=== PATIENT | female | born 1945 | race Caucasian/White ===

== ENCOUNTER 2016-04-29 04:52 | Emergency (ER) | payer MEDICARE, OTHER ==
[~2016-04-29] VITALS: Ht 160 cm; Wt 56.7 kg
[2016-04-29 04:52] VITALS: BP 127/30
[~2016-04-29 04:52] MED LIST: FLUO-120; LEVO75TA PO; LORA1TAB82 PO; TRAZ-144 PO
== END 2016-04-29 05:48 | disposition home or self-care (01) ==
LOC: ER 04:55
DX: Z00.8 Encounter for other general examination (principal); F32.9 Major depressive disorder, single episode, unspecified; Z88.0 Allergy status to penicillin; Z85.3 Personal history of malignant neoplasm of breast
CPT/HCPCS: 99281; A4606; Z7502; Z7610

== ENCOUNTER 2018-06-23 18:38 | Emergency (ER) | payer MEDICARE, OTHER ==
[~2018-06-23] VITALS: Ht 154.9 cm; Wt 59.0 kg
[~2018-06-23 18:38] MED LIST changes: +LORA-259 PO; -LORA1TAB82 PO; -TRAZ-144 PO; +TRAZ-182 PO
--- NOTE | 2018-06-23 18:40 | NUR ---
PT FROM URGENT CARE, CAME IN FOR FURTHER EVAL S/P GLF "SLIPPED OFF THE BED AND HIT HEAD ON THE BEDSIDE TABLE" -STEVEN WEAVER APPLIED FROM URGENT CARE. TO ER BED 2, HOOKED TO MONITOR, PROVIDED W WARM BLANKET, AWAITING MD VANESSA.
--- NOTE | 2018-06-23 19:05 | NUR ---
REPORT GIVEN TO ARCELIA MARES FOR RAJESH
--- NOTE | 2018-06-23 19:06 | NUR ---
RECEIVED REPORT FROM VISHNU SAMANO PT APPEARS COMFORTABLE. VSS.
--- NOTE | 2018-06-23 19:20 | NUR ---
DR. GRANADOS AT BEDSIDE FOR EVAL.
--- NOTE | 2018-06-23 20:02 | NUR ---
PT RETURNED FROM RADIOLOGY. NO ACUTE DISTRESS NOTED.
[2018-06-23 20:55] VITALS: BP 148/77
--- NOTE | 2018-06-23 20:55 | NUR ---
Patient discharged to home in stable condition. Written and verbal after care instructions given. Patient verbalizes understanding of instruction. ambulatory with a steady gait
== END 2018-06-23 20:56 | disposition home or self-care (01) ==
LOC: ER 18:42
DX: S39.012A Strain of muscle, fascia and tendon of lower back, initial encounter (principal); S09.8XXA Other specified injuries of head, initial encounter; G43.909 Migraine, unspecified, not intractable, without status migrainosus; F32.9 Major depressive disorder, single episode, unspecified; F41.9 Anxiety disorder, unspecified; E03.9 Hypothyroidism, unspecified; E78.00 Pure hypercholesterolemia, unspecified; Z88.0 Allergy status to penicillin; Z85.3 Personal history of malignant neoplasm of breast; W01.198A Fall on same level from slipping, tripping and stumbling with subsequent striking against other object, initial encounter; Y93.89 Activity, other specified; Y92.89 Other specified places as the place of occurrence of the external cause; Y99.8 Other external cause status
CPT/HCPCS: 70450-TC; 72131-TC

== ENCOUNTER 2020-04-27 16:14 | Emergency (ER) | payer MEDICARE, OTHER ==
[~2020-04-27] VITALS: Ht 154.9 cm; Wt 59.0 kg
[~2020-04-27 16:14] MED LIST changes: -FLUO-120; +FLUO20CA42
--- NOTE | 2020-04-27 16:26 | NUR ---
Patient came in to the er c/o left clavicle pain 5/10 pain scale, s/p fall . On room air, breathing evenly and unlabored. Kept comfortable, will continue to monitor accordingly.
--- NOTE | 2020-04-27 17:40 | NUR ---
Patient AAO x4. Denies pain. In room air and denies sob. Respiration regular and unlabored. Patient discharged to home in stable condition. Written and verbal after care instructions given. Patient verbalizes understanding of instruction. Patient left the hospital in stable condition.
[2020-04-27 17:41] VITALS: BP 112/60
== END 2020-04-27 17:43 | disposition home or self-care (01) ==
LOC: ER 16:14
DX: M25.512 Pain in left shoulder (principal); E03.9 Hypothyroidism, unspecified; F32.9 Major depressive disorder, single episode, unspecified; F41.9 Anxiety disorder, unspecified; G43.909 Migraine, unspecified, not intractable, without status migrainosus; Z88.0 Allergy status to penicillin; Z79.899 Other long term (current) drug therapy; Z85.3 Personal history of malignant neoplasm of breast; W18.39XA Other fall on same level, initial encounter; Y93.89 Activity, other specified; Y92.89 Other specified places as the place of occurrence of the external cause; Y99.8 Other external cause status
CPT/HCPCS: 71046; 73030-TC

== ENCOUNTER 2022-09-01 12:01 | Emergency (ER) | payer MEDICARE, OTHER ==
[~2022-09-01] VITALS: Ht 152.4 cm; Wt 61.2 kg
--- NOTE | 2022-09-01 12:20 | NUR ---
PT WALKED INTO ER C/O HEADACHE, NASAL PAIN AND LEFT WRIST PAIN S/P TRIP AND FALL LAST NIGHT. PT SUSTAINED HEMATOMA AND ABRASION ON LEFT SIDE OF THE FOREHEAD. PT DENIES LOC. BREATHING EVEN AND UNLABORED. CONNECTED TO MONITOR, VITAL SIGNS WNL.
--- NOTE | 2022-09-01 12:21 | NUR ---
AT BEDSIDE FOR EVAL
[2022-09-01] MEDS ORDERED: IBUP-1953 PO (13:29)
[2022-09-01] MEDS ORDERED: TDAP [DIPH/PERTUSSIS/TET] 0.5 ML VIAL IM ONE ×2 (13:30→13:36)
--- NOTE | 2022-09-01 13:47 | NUR ---
Patient discharged to home in stable condition. Written and verbal after care instructions given. Patient verbalizes understanding of instruction.
[2022-09-01 13:48] VITALS: BP 134/82; TEMP 208.4
== END 2022-09-01 13:49 | disposition home or self-care (01) ==
LOC: ER 12:03
DX: S63.592A Other specified sprain of left wrist, initial encounter (principal); S00.31XA Abrasion of nose, initial encounter; M25.512 Pain in left shoulder; G43.909 Migraine, unspecified, not intractable, without status migrainosus; F32.A Depression, unspecified; F41.9 Anxiety disorder, unspecified; E03.9 Hypothyroidism, unspecified; Z88.0 Allergy status to penicillin; Z79.899 Other long term (current) drug therapy; W18.39XA Other fall on same level, initial encounter; Y93.89 Activity, other specified; Y92.89 Other specified places as the place of occurrence of the external cause; Y99.8 Other external cause status
CPT/HCPCS: 70450-TC; 70486-TC; 73030-TC; 73110; 90715

== ENCOUNTER 2022-11-03 12:14 | Emergency (ER) | payer MEDICARE, OTHER ==
[~2022-11-03] VITALS: Ht 152.4 cm; Wt 56.7 kg
[~2022-11-03 12:14] MED LIST changes: +IBUP-1953 PO
[2022-11-03] MEDS ORDERED: OXYC5CAP18 PO (14:34)
[2022-11-03 15:16] VITALS: BP 122/70; TEMP 97.9; O2SAT 97
== END 2022-11-03 15:16 | disposition home or self-care (01) ==
LOC: ER 12:14
DX: S22.32XA Fracture of one rib, left side, initial encounter for closed fracture (principal); G43.909 Migraine, unspecified, not intractable, without status migrainosus; F32.A Depression, unspecified; F41.9 Anxiety disorder, unspecified; E03.9 Hypothyroidism, unspecified; Z85.3 Personal history of malignant neoplasm of breast; Z88.0 Allergy status to penicillin; W01.0XXA Fall on same level from slipping, tripping and stumbling without subsequent striking against object, initial encounter; Y93.89 Activity, other specified; Y92.89 Other specified places as the place of occurrence of the external cause; Y99.8 Other external cause status
CPT/HCPCS: 71100-TC; 71250-TC

== ENCOUNTER 2023-05-26 15:31 | Emergency (ER) | payer MEDICARE, OTHER ==
[~2023-05-26] VITALS: Ht 152.4 cm; Wt 54.4 kg
[~2023-05-26 15:31] MED LIST changes: +OXYC5CAP18 PO
[2023-05-26] MEDS ORDERED: LIDOCAINE 1%-EPI 1:100,000 20 ML VIAL ONE (16:47)
[2023-05-26] MEDS ORDERED: ACETAMINOPHEN ES 500 MG TABLET ONE (16:47)
[2023-05-26] MEDS: ACETAMINOPHEN ES 500 MG TABLET PO ONE (16:54)
[2023-05-26] MEDS: LIDOCAINE 1%-EPI 1:100,000 20 ML VIAL TP ONE (17:05)
[2023-05-26 22:37] VITALS: BP 145/98; TEMP 98; O2SAT 100
== END 2023-05-26 18:00 | disposition home or self-care (01) ==
LOC: ER 15:35
DX: S01.81XA Laceration without foreign body of other part of head, initial encounter (principal); S80.812A Abrasion, left lower leg, initial encounter; G43.909 Migraine, unspecified, not intractable, without status migrainosus; F32.A Depression, unspecified; E03.9 Hypothyroidism, unspecified; F41.9 Anxiety disorder, unspecified; W01.10XA Fall on same level from slipping, tripping and stumbling with subsequent striking against unspecified object, initial encounter; Y93.89 Activity, other specified; Y92.002 Bathroom of unspecified non-institutional (private) residence as the place of occurrence of the external cause; Y99.8 Other external cause status; Z88.8 Allergy status to other drugs, medicaments and biological substances
CPT/HCPCS: 12013; 70450; 99284; J3490

== ENCOUNTER 2023-06-01 15:06 | Emergency (ER) | payer MEDICARE, OTHER ==
[~2023-06-01] VITALS: Ht 152.4 cm; Wt 54.4 kg
[2023-06-01 15:11] VITALS: BP 117/70; TEMP 98; O2SAT 97
== END 2023-06-01 15:22 | disposition home or self-care (01) ==
LOC: ER 15:14
DX: S01.112D Laceration without foreign body of left eyelid and periocular area, subsequent encounter (principal); Z48.02 Encounter for removal of sutures; G43.909 Migraine, unspecified, not intractable, without status migrainosus; F32.A Depression, unspecified; F41.9 Anxiety disorder, unspecified; E03.9 Hypothyroidism, unspecified; Z85.3 Personal history of malignant neoplasm of breast; Z88.0 Allergy status to penicillin; Z79.899 Other long term (current) drug therapy; X58.XXXD Exposure to other specified factors, subsequent encounter

== ENCOUNTER 2023-12-26 19:47 | Emergency (ER) | payer MEDICARE, OTHER ==
[~2023-12-26] VITALS: Ht 149.9 cm; Wt 55.8 kg
[2023-12-26] MEDS ORDERED: ACETAMINOPHEN 325 MG TABLET ONE (20:53)
[2023-12-26] MEDS: ACETAMINOPHEN 325 MG TABLET PO ONE (20:54)
[2023-12-26 21:07] LABS: BASOPHILS % (AUTO) 0.5 % (0.0-2.0); EOSINOPHILS # (AUTO) 0.1 K/uL (0.0-0.7); EOSINOPHILS % (AUTO) 0.7 % (0.0-6.0); HEMATOCRIT 40 % (33-45); HEMOGLOBIN 13.5 g/dL (11.5-14.8); LYMPHOCYTES % (AUTO) 13.2 % (20.0-44.0); MEAN CORPUSCULAR HEMOGLOBIN 34 PG (26.0-33.0); MEAN CORPUSCULAR HGB CONC 34 g/dl (31.0-36.0); MEAN CORPUSCULAR VOLUME 99 fL (82-100); MONOCYTES # (AUTO) 0.6 K/uL (0.1-1.30); MONOCYTES % (AUTO) 7.6 % (2.0-12.0); NEUTROPHILS # (AUTO) 5.7 K/uL (1.8-8.9); PLATELET COUNT (AUTO) 181 K/uL (150-450); RED BLOOD CELL COUNT(AUTO) 4.01 MIL/uL (4.0-5.2); RED CELL DISTRIBUTION WIDTH 13.1 % (11.5-15.0); WHITE BLOOD COUNT (AUTO) 7.4 K/uL (4.3-11.0)
[2023-12-26 21:19] LABS: CALCIUM, SERUM 9.8 mg/dL (8.5-10.1); CARBON DIOXIDE 29 mmol/L (21-32); CHLORIDE 102 mmol/L (98-107); GLUCOSE 112 mg/dL (74-106); POTASSIUM 3.9 mmol/L (3.5-5.1); SODIUM SERUM 137 mmol/L (136-145); UREA NITROGEN, BLOOD 24 mg/dL (7-18)
[2023-12-26 21:25] LABS: ALANINE AMINOTRANSFERASE 22 U/L (12-78); ALBUMIN 3.7 g/dL (3.4-5.0); ALKALINE PHOSPHATASE 99 U/L (46-116); ASPARTATE AMINOTRANSFERASE 23 U/L (15-37); BILIRUBIN,TOTAL 0.3 mg/dL (0.2-1.0); TOTAL PROTEIN, SERUM 6.8 g/dL (6.4-8.2)
[2023-12-26] MEDS ORDERED: LIDOCAINE/PRILOCAINE (5GM) 5 GM TUBE TP ONE (21:52)
[2023-12-26] MEDS ORDERED: LIDOCAINE HCL/MPF 1% 30 ML VIAL IJ ONE (21:52)
[2023-12-26] MEDS: LIDOCAINE HCL/PF 1% 30 ML VIAL TP ONE (21:54)
[2023-12-26] MEDS: LIDOCAINE/PRILOCAINE (5GM) 5 GM TUBE TP ONE (21:54)
[2023-12-26] MEDS ORDERED: BACI500P4 TP (22:25)
[2023-12-26] MEDS ORDERED: ACET325C7 PO (22:25)
[2023-12-26 23:36] VITALS: BP 134/78; TEMP 97.4; O2SAT 97
== END 2023-12-26 23:37 | disposition home or self-care (01) ==
LOC: ER 19:48
DX: S01.81XA Laceration without foreign body of other part of head, initial encounter (principal); S60.011A Contusion of right thumb without damage to nail, initial encounter; S80.812A Abrasion, left lower leg, initial encounter; M79.645 Pain in left finger(s); E03.9 Hypothyroidism, unspecified; F32.A Depression, unspecified; G43.909 Migraine, unspecified, not intractable, without status migrainosus; Z79.899 Other long term (current) drug therapy; Z85.3 Personal history of malignant neoplasm of breast; Z88.0 Allergy status to penicillin; Z90.13 Acquired absence of bilateral breasts and nipples; Z60.2 Problems related to living alone; W01.0XXA Fall on same level from slipping, tripping and stumbling without subsequent striking against object, initial encounter; Y93.89 Activity, other specified; Y92.098 Other place in other non-institutional residence as the place of occurrence of the external cause; Y99.8 Other external cause status
CPT/HCPCS: 12011; 29125; 36415; 70450; 72125; 73130; 80053; 84484; 85025; 93005; 99285; J3490

== ENCOUNTER 2024-01-06 15:18 | Emergency (ER) | payer MEDICARE ==
[~2024-01-06] VITALS: Ht 149.9 cm; Wt 55.8 kg
[~2024-01-06 15:18] MED LIST changes: +ACET325C7 PO; +BACI500P4 TP
[2024-01-06 15:28] VITALS: BP 118/72; TEMP 97.9; O2SAT 98
[2024-01-06] MEDS ORDERED: ACET325T53 PO (15:54)
[2024-01-06] MEDS ORDERED: ACETAMINOPHEN 325 MG TABLET ONE (16:06)
[2024-01-06] MEDS: ACETAMINOPHEN 325 MG TABLET PO ONE (16:08)
== END 2024-01-06 16:14 | disposition home or self-care (01) ==
LOC: ER 15:19
DX: S01.81XD Laceration without foreign body of other part of head, subsequent encounter (principal); Z48.02 Encounter for removal of sutures; X58.XXXD Exposure to other specified factors, subsequent encounter; E03.9 Hypothyroidism, unspecified; F32.A Depression, unspecified; F41.9 Anxiety disorder, unspecified; G43.909 Migraine, unspecified, not intractable, without status migrainosus; Z79.899 Other long term (current) drug therapy; Z85.3 Personal history of malignant neoplasm of breast; Z88.0 Allergy status to penicillin; Z60.2 Problems related to living alone

== ENCOUNTER 2025-01-04 13:37 | Emergency (ER) | payer MEDICARE, OTHER ==
[~2025-01-04] VITALS: Ht 149.9 cm; Wt 56.7 kg
[~2025-01-04 13:37] MED LIST changes: +ACET325T53 PO
[2025-01-04 13:46] VITALS: TEMP 98.6
[2025-01-04] MEDS: BACITRACIN ZINC OINT PACKET 1 EA PACKET TP ONE (14:28)
[2025-01-04] MEDS ORDERED: IBUPROFEN 600 MG TABLET ONE (15:16)
[2025-01-04] MEDS: IBUPROFEN 600 MG TABLET PO ONE (15:24)
[2025-01-04 16:05] VITALS: BP 134/88
[2025-01-04 16:20] VITALS: O2SAT 97
== END 2025-01-04 16:33 | disposition home or self-care (01) ==
LOC: ER 13:43
DX: S61.412D Laceration without foreign body of left hand, subsequent encounter (principal); M19.90 Unspecified osteoarthritis, unspecified site; F41.9 Anxiety disorder, unspecified; F32.A Depression, unspecified; E03.9 Hypothyroidism, unspecified; G43.909 Migraine, unspecified, not intractable, without status migrainosus; Z48.02 Encounter for removal of sutures; Z79.890 Hormone replacement therapy; Z79.899 Other long term (current) drug therapy; Z85.3 Personal history of malignant neoplasm of breast; Z88.0 Allergy status to penicillin; Z90.13 Acquired absence of bilateral breasts and nipples; Z60.2 Problems related to living alone; X58.XXXD Exposure to other specified factors, subsequent encounter
CPT/HCPCS: 73130-TC